=== PATIENT | female | born 1995 | race Caucasian/White ===

== ENCOUNTER 2020-12-21 17:52 | Outpatient (REF) | payer OTHER, SELFPAY ==
[2020-12-21 18:42] LABS: COVID-19 Test Negative (Negative); IDNOW Serial# 9DD0AD1C
== END 2020-12-21 17:53 | disposition home or self-care (01) ==
LOC: HO.LNP 17:52
PROVIDERS: Visit Provider Internal Medicine
DX: Z20.822 Contact with and (suspected) exposure to COVID-19 (principal)
CPT/HCPCS: 87635